=== PATIENT | female | born 1955 | race Caucasian/White ===

== ENCOUNTER 2019-06-14 09:33 | Emergency (ER) | payer OTHER ==
--- NOTE | 2019-06-14 10:05 | EDM.PDOC ---
ED HPI GENERAL MEDICAL PROBLEM - General Chief Complaint: Headache Stated Complaint: HEADACHE X3 DAYS Time Seen by Provider: 06/14/19 09:59 Source of Information: Reports: Patient History Limitations: Reports: No Limitations - History of Present Illness INITIAL COMMENTS - FREE TEXT/NARRATIVE: 63-year-old female presents to the ED at the request of the walk-in clinic. She presents with a chronic daily headache. Will for the last 3 weeks and she's been sick with pneumonia. The last 3 days it seems to be much worse and seems to be coming mostly from her cervical spine. She appreciates pain at the base of her skull rating up into the frontal aspect of her forehead. She has minimal nasal congestion. She is aware some tenderness over both maxillary sinuses. Is very minimal nasal congestion that she's blowing. Does have some pressure in her ears. Cough is much improved over the last 48 hours. No more fever or chills. No wheezing. Produce now is clear. She finished off a 10 day course of Levaquin. Onset: Gradual Onset Date: 06/11/19 Duration: Constant, Intermittent, Resolved Prior to Arrival, Waxing/Waning Location: Reports: Head Quality: Reports: Ache, Pressure, Throbbing (Headache primarily left occipital rating up into the forehead.) Severity: Moderate Improves with: Reports: Medication (Tylenol house for a while) Worsens with: Reports: None Context: Denies: Activity, Exercise, Lifting, Sick Contact, Trauma, Other Associated Symptoms: Reports: Cough, cough w sputum. 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: Acetaminophen Headache Pain Score (Numeric/FACES): 10 - Related Data Allergies Allergy/AdvReac Type Severity Reaction Status Date / Time No Known Allergies Allergy Verified 06/14/19 09:43 Home Meds: Home Meds Diclofenac Sodium [Voltaren] 50 mg PO TID #12 tab.ec 06/14/19 [Rx] Doxycycline [Vibramycin] 100 mg PO BID #16 cap 06/14/19 [Rx] predniSONE [Deltasone] 20 mg PO BID #10 tablet 06/14/19 [Rx] Past Medical History Musculoskeletal History: Reports: Other (See Below) Other Musculoskeletal History: back surgery Social & Family History - Living Situation & Occupation Living situation: Reports: Occupation: Unemployed ED ROS GENERAL - Review of Systems Review Of Systems: See Below Constitutional: Reports: Malaise, Fatigue, Other (Appetite is pretty well back to normal.). Denies: Fever, Chills HEENT: Reports: Sinus Problem Respiratory: Reports: Cough, Sputum Cardiovascular: Reports: No Symptoms (Clear sputum now cough is much improved over the last 48 hours.) GI/Abdominal: Reports: No Symptoms : Reports: No Symptoms Musculoskeletal: Reports: Neck Pain. Denies: Shoulder Pain, Arm Pain, Back Pain , Hand Pain, Leg Pain, Foot Pain, Joint Pain, Joint Swelling, Muscle Pain Skin: Reports: No Symptoms Neurological: Reports: Headache. Denies: Numbness, Pre-Existing Deficit, Seizure, Tingling, Trouble Speaking, Difficulty Walking Psychiatric: Reports: No Symptoms Hematologic/Lymphatic: Reports: No Symptoms ED EXAM, HEAD INJURY - Physical Exam Exam: See Below Exam Limited By: No Limitations General Appearance: Alert, WD/WN, Mild Distress Head: Atraumatic, Normocephalic, Sinus Tenderness. No: Facial Abrasions, Facial Swelling, Raccoon Eyes Nexus Criteria: No: Posterior, Midline Cervical Tenderness (Over the ethmoid and sphenoids and maxillary.), Evidence of Intoxication, Altered Level of Consciousness, Focal Neurological Deficit, Painful Distraction Injuries Eyes: Bilateral Eye: Normal Inspection Ears: Normal TMs Nose: Normal Inspection, Other (Mild swelling of the turbinates bilaterally but no) Throat/Mouth: Normal Inspection, Normal Lips, Normal Teeth, Normal Oropharynx ( nasal polyps appreciated.) Neck: Full Range of Motion, Normal Alignment, Normal Inspection, Muscle Spasm ( Left side mild), Tenderness (She is very tender C4-5 facet joint on the left side.), Tender Lateral Respiratory: No Respiratory Distress, Lungs Clear, Normal Breath Sounds, No Accessory Muscle Use, Chest Non-Tender Cardiovascular: Normal Peripheral Pulses, Regular Rate, Rhythm, No Edema, No Gallop, No Murmur, No Rub, Other GI/Abdominal Exam: Normal Bowel Sounds (Blood pressure elevated 1 5499 at the time of exam.) Extremities: Normal Inspection, Normal Range of Motion, Non-Tender Neurologic: No Motor/Sensory Deficits, Alert, Normal Mood/Affect, Oriented x 3 Skin: Normal Color, Warm/Dry - [place] Coma Score Best Eye Response (Brady): (4) Open Spontaneously Best Verbal Response (Brady): (5) Oriented Best Motor Response (Brady): (6) Obeys Commands Brady Total: 15 Course - Vital Signs Last Recorded V/S: Last Vital Signs Temp 36.9 C 06/14/19 09:39 Pulse 87 06/14/19 09:39 Resp 18 06/14/19 09:39 BP 154/99 H 06/14/19 09:39 Pulse Ox 97 06/14/19 09:39 - Radiology Interpretation Free Text/Narrative:: 63-year-old female presents to the ED with a chronic daily headache for at least 3 days and perhaps even longer. It seems to be coming from her cervical spine on the left side. However she has pain on palpation of her maxillary sinuses as well as ethmoid sphenoid sinus areas. She is getting over a pneumonia. Pravin going to have a maxillofacial CT carried out - Re-Assessments/Exams Free Text/Narrative Re-Assessment/Exam: 06/14/19 10:39 CT of the maxillofacial sinuses shows the frontals to be clear the ethmoids and sphenoids to be pretty normal the right maxillary sinuses about 40% filled with debris. There is scant evidence of inflammation of the floor of the left maxillary sinus. I'm therefore going to place her on Doxil cycle in 100 mg twice daily for another 8 days to clear this infection up. However overall her neck pain and headache is coming from her cervical spine. To place her on Deltasone 20 mg twice daily for 5 days and Voltaren 50 mg twice a day for 7 days to reduce inflammation she is willing to see a chiropractor as well which I would concur with. Departure - Departure Time of Disposition: 10:40 Disposition: Home, Self-Care 01 Condition: Fair Clinical Impression: Chronic daily headache Maxillary sinusitis Qualifiers: Chronicity: acute Recurrence: non-recurrent Qualified Code(s): J01.00 - Acute maxillary sinusitis, unspecified - Discharge Information *PRESCRIPTION DRUG MONITORING PROGRAM REVIEWED*: Not Applicable *COPY OF PRESCRIPTION DRUG MONITORING REPORT IN PATIENT LORIE: Not Applicable Prescriptions: Diclofenac Sodium [Voltaren] 50 mg PO TID #12 tab.ec Doxycycline [Vibramycin] 100 mg PO BID #16 cap predniSONE [Deltasone] 20 mg PO BID #10 tablet Instructions: Sinusitis, Adult, [id number] Referrals: PCP,None [Primary Care Provider] - Forms: ED Department Discharge Additional Instructions: Evaluation the emergency room this morning in regards to diffuse recurrent headaches which I believe is coming from the cervical spine particularly on the left side. There is an area at the C3-C4 and C5 level that is inflamed with overlying muscle spasm. I agree with you that a treatment with chiropractor would be most beneficial. CT of the maxillofacial sinuses shows moderate sinus infection involving the right maxillary sinus and mild in the left maxillary sinus. The remainder the sinuses are clear. Doxycycline 100 mg twice daily for another 8 days to clear up this infection completely. Suggest use of Deltasone 20 mg with breakfast and supper to reduce inflammation in the cervical spine. Voltaren 50 mg twice daily to reduce pain and inflammation in the cervical spine and relieve headache. 6 days. Follow-up with personal care physician if any further problems occur.
--- NOTE | 2019-06-14 10:43 | CT ---
CT paranasal sinuses Technique: Multiple axial sections through the paranasal sinuses were obtained. Reconstructed coronal and sagittal images were obtained. Comparison: No prior sinus studies available. Findings: Mild mucosal thickening is seen within both inferior maxillary sinuses. Mild mucosal thickening is noted within the right ethmoid sinus. Other paranasal sinuses are clear. No air-fluid levels are seen. Nasal septal deviation is noted. Mastoid sinuses are clear. Middle ear cavities are also clear. Impression: 1. Mild mucosal thickening within both inferior maxillary sinuses and right ethmoid sinus. 2. Nasal septal deviation. Diagnostic code #2
== END 2019-06-14 10:49 | disposition home or self-care (01) ==
LOC: JD.ED 09:33
DX: J01.00 Acute maxillary sinusitis, unspecified (principal)
CPT/HCPCS: 70486; 70486-26; 99284-25